=== PATIENT | female | born 1960 | race Caucasian/White ===

== ENCOUNTER 2020-11-22 15:26 | Outpatient (REF) | payer OTHER, SELFPAY ==
[2020-11-22 16:47] LABS: Influenza A PCR NEGATIVE (Negative); Influenza B PCR NEGATIVE (Negative); Resp Syncy Virus RNA Qual PCR NEGATIVE (Negative); SARS COV2 PCR INHOUSE NEGATIVE (Negative)
== END 2020-11-22 15:27 | disposition home or self-care (01) ==
LOC: HO.LNP 15:26
PROVIDERS: Visit Provider Internal Medicine
DX: Z20.822 Contact with and (suspected) exposure to COVID-19 (principal)
CPT/HCPCS: 0241U

== ENCOUNTER 2021-10-12 13:01 | Outpatient (REF) | payer BC, SELFPAY | END 2021-10-12 13:02 | disposition home or self-care (01) | LOC: HO.10HDL 13:01 | PROVIDERS: Visit Provider Internal Medicine | DX: L72.3 Sebaceous cyst (principal) | CPT/HCPCS: 87071; 87205 ==

== ENCOUNTER 2024-04-12 12:44 | Outpatient (REF) | payer BC, SELFPAY ==
[2024-04-12 13:13] LABS: MANUAL DIFF FLAG NO
[2024-04-12 13:23] LABS: Basophils Absolute Auto 0.1 X10*3/uL (0.0-0.2); Basophils Percent Auto 0.9 % (0-2); Eosinophils Absolute Auto 0.2 X10*3/uL (0.0-0.4); Eosinophils Percent Auto 3.7 % (0-4); Hematocrit 39.6 % (37.0-47.0); Imm Gran Abs Auto 0.01 X10*3/uL (0.00-0.03); Imm Gran Pct Auto 0.2 % (0.0-0.4); Lymphocytes Absolute Auto 1.5 X10*3/uL (1.2-4.9); Lymphocytes Percent Auto 25.5 % (20-40); Mean Corpuscular HGB Conc 32.8 g/dl (31.0-35.0); Mean Corpuscular Hemoglobin 29.2 pg (27.0-33.0); Mean Platelet Volume 9.8 fL (9.4-12.3); Monocytes Absolute Auto 0.6 X10*3/uL (0.1-1.2); Monocytes Percent Auto 10.7 % (2-11); Neutrophils Absolute Auto 3.5 x10*3/uL (2.0-8.3); Platelet Count 245 X10*3/uL (160-400); Red Blood Count 4.45 X10*6/uL (4.20-5.50); Red Cell Distribution Width 12.7 % (11.0-16.0); White Blood Count 5.9 X10*3/uL (4.8-10.8)
[2024-04-12 13:46] LABS: Alanine Aminotransferase 17 U/L (0-31); Albumin Level 4.4 g/dL (3.5-5.0); Alkaline Phosphatase 76 U/L (39-117); Anion Gap 7 (12-20); Aspartate Amino Transferase 18 U/L (5-31); Bilirubin Total 0.3 mg/dL (0.0-1.0); Blood Urea Nitrogen 28 mg/dL (9-16); Calcium 9.4 mg/dL (8.4-10.2); Carbon Dioxide 28 mmol/L (22-29); Chloride 111 mmol/L (96-108); Cholesterol 242 mg/dL (<200); Estimated Glomerular Filt Rate > 60; Glucose Random 99 mg/dL (60-115); Potassium 4.4 mmol/L (3.3-5.1); Sodium 142 mmol/L (135-145); Total Protein 7.3 g/dL (6.5-8.0)
== END 2024-04-12 12:45 | disposition home or self-care (01) ==
LOC: HO.10HDL 12:44
PROVIDERS: Visit Provider Internal Medicine
DX: Z13.6 Encounter for screening for cardiovascular disorders (principal); K21.9 Gastro-esophageal reflux disease without esophagitis; M17.12 Unilateral primary osteoarthritis, left knee; Z82.49 Family history of ischemic heart disease and other diseases of the circulatory system
CPT/HCPCS: 36415; 80053; 82465; 85025

== ENCOUNTER 2024-11-11 14:06 | Outpatient (AMB) | payer MEDICARE, SELFPAY ==
--- NOTE | 2024-11-11 14:09 | MHC.PC.OV ---
Vital Signs 11/11/24 14:25 Height 5 ft 7 in Weight 171 lb 2 oz BMI 26.8 BP 136/60 Blood Pressure Location Lt brachial Position Sitting Respiration 14 Pulse 76 Pulse Source Pulse Oximeter Temp 97.7 F Temp Source Temporal Artery Scan Pulse Oximetry (%) 95 Oxygen Delivery Method Room Air Intake Visit Reasons: PERSONAL INJURY LITIGATION PARALEGAL EST CARE Intake Note: Briseyda presents in the office today to establish care. Allergies Seasonal Allergies Allergy (Verified 11/11/24 14:17) Runny Nose Medication List - Last Reconciled 11/11/24 by Liz Young PA-C No Known Home Meds Tobacco use date assessed: 11/11/24 Dental Screening Dental Screen Date: 11/11/24 Did you have a dental visit in the last 12 months?: Yes Did you have a dental problem in the last 6 months where you did not have access to dental care?: No Was dental information given to patient?: Patient has dentist HPI PERSONAL INJURY LITIGATION PARALEGAL EST CARE HPI Details Pt is a 64 y/o female who presents today to establish care. 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 CV: bp today in office is 136/60. Cholesterol is diet controlled. She had a hx of HLD. She has had a neg stress test within 10 years. Msk: has longstanding left knee pain Psych: She has a hx of intermittent recurrent depression. In the past on zoloft around 2019. She felt the zoloft was helpful but had a hard time sleeping with it. She uses it prn. She is currently using herbal supplement. Derm: Follows with [facility] routinely for surveillance Mammo: utd, at [facility] Relay Tester: ANAND [place] Colonoscopy: 05/2019- due in 2029 Bone density: never had Fam hx: ovarian ca in patneral grandmother, Father had CABG hld, PFSH Medical History (Updated 11/11/24 @ 14:51 by Liz Young PA-C) Headache Depression Anxiety Acid reflux Incontinence Murmur Sinusitis Asthma Arthritis Surgical History (Updated 11/11/24 @ 14:30 by Lacey Fiore MA) History of appendectomy History of tonsillectomy Family History (Updated 11/11/24 @ 14:24 by Lacey Fiore MA) Father Hypertension Coronary artery disease Hyperlipemia Cardiovascular disease Brother Hypertension Cardiovascular disease Paternal Grandmother Ovarian cancer Mother Substance abuse Alcoholism Drug abuse FHx: mental illness Depression Other Coronary bypass graft mechanical complication Social History (Updated 11/11/24 @ 14:25 by Lacey Fiore MA) Housing: House Alcohol intake: current Patient Tobacco Use Status: Former Tobacco user Cigarette Packs Per Day: 1 Cigarettes Per Day: 6 Years Smoked: 4 e-Cigarette/Vaping Use: Never Used Second Hand Smoke Exposure: No service: No Current occupational status: retired Current occupational exposures/hazards: No Cognitive needs: No Hearing needs: No Vision needs: Yes Questionnaire PHQ-9 Over the last 2 weeks, how often have you been bothered by any of the following problems? 1. Little interest or pleasure in doing things: not at all 2. Feeling down, depressed, or hopeless: not at all 3. Trouble falling or staying asleep, or sleeping too much: not at all 4. Feeling tired or having little energy: not at all 5. Poor appetite or overeating: not at all 6. Feeling bad about yourself - or that you are a failure or have let yourself or your family down: not at all 7. Trouble concentrating on things, such as reading the newspaper or watching television: not at all 8. Moving or speaking so slowly that other people could have noticed. Or the opposite - being so fidgety or restless that you have been moving around a lot more than usual: not at all 9. Thoughts that you would be better off or of hurting yourself in some way: not at all Total score: 0 Depression Screening Interpretation: Negative Depression Screening Done: Yes 33362 - PHQ-9 Billing: Yes Source: Developed by Drs. Silvestre Suarez, Veronica Smith, Mark Bennett and colleagues, with an educational batsheva from [employer]. Thrive Questionnaire Date Thrive assessed: 11/11/24 I am a: Patient What is your living situation today?: I have a steady place to live Within the past 12 months, did the food you bought not last and you didn't have the money to get more?: Never true Within the past 12 months, did you worry whether your food would run out before you got money to buy more?: Never true Do you have trouble paying for medicines?: No Do you have trouble getting transportation to medical appointments?: No Do you have trouble paying your heating and electricity bill?: No Do you have trouble taking care of your child, family member or friend?: No Do you have trouble with day-to-day activities such as bathing, preparing meals, shopping, managing finances, etc.?: No Are you currently unemployed and looking for a job?: No Are you interested in more education?: No Please select the resources that you would like help with: None Currently or been in a relationship where the following occur: No concerns reported THRIVE Score: 0 AUDIT C Alcohol Use Questionnaire (AUDIT-C) 1. How often do you have a drink containing alcohol?: Monthly or less 2. How many drinks containing alcohol do you have on a typical day when you are drinking?: 1 or 2 3. How often do you have six or more drinks on one occasion?: Never Total Score: 1 ILENE-7 AMB Questionnaire ILENE-7 Date ILENE - 7 assessed: 11/11/24 Feeling nervous, anxious, or on edge: 1 = Several days Not being able to stop or control worryin = Not at all Worrying too much about different things: 0 = Not at all Trouble relaxin = Several days Being so restless that it is hard to sit still: 1 = Several days Becoming easily annoyed or irritable: 0 = Not at all Feeling afraid as if something awful might happen: 0 = Not at all Total ILENE-7 score (0-4 normal; 5-9 mild; 10-14 moderate; 15-21 severe): 3 Source: Developed by Drs. Silvestre Suarez, Veronica Smith, Mark Bennett and colleagues, with an educational batsheva from [employer]. ILENE-7 Assessment Billing ILENE-7 Assessment Tool: ILENE-7 Assessment 46840 Physical exam (Primary Care) Vital Signs: Last Vital Signs Temp 97.7 F 11/11/24 14: Pulse 76 11/11/24 14:25 Resp 14 11/11/24 14:25 BP 136/60 11/11/24 14:25 Pulse Ox 95 11/11/24 14:25 Oxygen Delivery Method Room Air 11/11/24 14:25 BMI result Body Mass Index 26.8 Tobacco/Smoking Status: Tobacco use Status Tobacco use date assessed 11/11/24 11/11/24 14:31 Patient Tobacco Use Status Former Tobacco user 11/11/24 14:31 e-Cigarette/Vaping Use Never Used 11/11/24 14:31 PHQ-9: PHQ-9 Score PHQ-9: Total score 0 11/11/24 14:40 Depression Screening Interpretation: Negative Thrive Assessment: Date of Thrive Assessment Date Thrive assessed 11/11/24 11/11/24 14:10 Currently or been in a relationship where the following occur: No concerns reported Const Orientation/consciousness: patient oriented x3 HENMT Ears: hearing grossly normal bilaterally Neck Thyroid: Thyroid normal Lymphatic: no lymphadenopathy noted Resp Auscultation: clear to auscultation bilaterally Cardio Rate: regular rate Rhythm: regular rhythm Heart sounds: S1 normal heart sound present and S2 normal heart sound present GI Inspection: Yes normal to inspection Palpation (GI): Soft to palpation and Other GI palpation findings present (nontender, no cva tenderness) Auscultation: normoactive bowel sounds Rectal Exam - Female: deferred Skin General skin exam: no rashes or lesions noted Neuro General: patient oriented x3, gait normal and no focal motor deficits Results Reviewed Results Reviewed: Laboratory Tests 04/12/24 12:52 WBC 5.9 RBC 4.45 Hgb 13.0 Hct 39.6 Plt Count 245 Sodium 142 Potassium 4.4 Chloride 111 H Carbon Dioxide 28 Anion Gap 7 L BUN 28 H Creatinine 0.66 Estimated GFR > 60 AST 18 ALT 17 Cholesterol 242 H Coding Level of Care Code New Pt Level 3 (62102) Complex EM visit Add On G2211 Diagnoses Major depression, chronic F32.9 Dyslipidemia E78.5 BCC (basal cell carcinoma of skin) C44.91 Additional Codes ILENE-7 Assessment Billing - ILENE-7 Assessment Tool: ILENE-7 Assessment 35968 ([id number]) PHQ-9 - 35484 - PHQ-9 Billing: Yes ([id number]) Assessment & Plan Assessment & Plan (1) Major depression, chronic: Code(s): F32.9 - Major depressive disorder, single episode, unspecified Category: Medical Plan: Currently being managed with an herbal supplement . Doing well. She will let me know if anything changes (2) Dyslipidemia: Code(s): E78.5 - Hyperlipidemia, unspecified Category: Medical Plan: We will check this today. States that she is able to control this usually with her diet. (3) BCC (basal cell carcinoma of skin): Code(s): C44.91 - Basal cell carcinoma of skin, unspecified Category: Medical Plan: Follows with new [facility] Orders: Orders Comprehensive [place]. Panel Fast 11/11/24 C44.91 - Basal cell carcinoma of skin, unspecified, E78.5 - Hyperlipidemia, unspecified, F32.9 - Major depressive disorder, single episode, unspecified Lipid Panel 11/11/24 C44.91 - Basal cell carcinoma of skin, unspecified, E78.5 - Hyperlipidemia, unspecified, F32.9 - Major depressive disorder, single episode, unspecified Microalbumin, Random (w Creat) 11/11/24 C44. - Basal cell carcinoma of skin, unspecified, E78.5 - Hyperlipidemia, unspecified, F32.9 - Major depressive disorder, single episode, unspecified XR DEXA axial skeleton 11/11/24 N95.1 - Menopausal and female climacteric states Complete Blood Count Auto Diff 11/11/24 C44.91 - Basal cell carcinoma of skin, unspecified, E78.5 - Hyperlipidemia, unspecified, F32.9 - Major depressive disorder, single episode, unspecified TSH reflex Free T4 11/11/24 C44.91 - Basal cell carcinoma of skin, unspecified, E78.5 - Hyperlipidemia, unspecified, F32.9 - Major depressive disorder, single episode, unspecified UA CC w/rflx Micro + Cult 11/11/24 C44. - Basal cell carcinoma of skin, unspecified, E78.5 - Hyperlipidemia, unspecified, F32.9 - Major depressive disorder, single episode, unspecified, Z13.220 - Encounter for screening for lipoid disorders
[2024-11-11 14:25] VITALS: BP 136/60; PULSE 76; RESP 14; TEMP 36.5; O2SAT 95; BMI 26.8
--- OUTSIDE RECORDS SUMMARY | 2024-11-11 14:56 | XMS_ITS | Patient Health Record ---
Author Organization [facility] Address [address] [place] [address] Care Team Providers Care Basketball Scout Name Role Phone Chase (RETIRED) Lalo FARAH Primary Care Provide Silvestre Combs [phone] Allergies Allergen (clinical drug ingredient) Drug/Non Drug Allergy documented on EMR Reaction Allergy Type Onset Date Status penicillin G Penicillin G Sodium Unknown Drug Allergy Active Reason For Referral No Information Medications Medication SIG (Take, Route, Frequency, Duration) Notes Start Date End Date Status Multivitamin Active Ranitidine Oral as needed Acti ve Migraine Relief as needed Acti ve Cfxmegu-Nzbryb-Vr Chondr-MSM Active Albuterol as needed Active [place] 3 Active Immunizations Vaccine Route Administration Date Status Comme nts Influenza Unknown 04/01/2019 Refused Social History Tobacco Use: Social History Observation Description Date Details (start date - stop date) Never Smoker NA - NA Tobacco Use/Smoking Question Answer Notes Patient is a nonsmoker Alcohol Screen Question Answer Notes Did you have a drink contain ing alcohol in the past year? Yes How often did you have a dri nk containing alcohol in the past year? Monthly or less (1 point) How many drinks did you have on a typical day when you were drinking in the past year? 1 or 2 drinks (0 point) How often did you have 6 or more drinks on one occasion in the past year? Never (0 point) Points 1 Interpretation Negative Section Notes: Nonsmoker; no sig alcohol Problems Problem Type SNOMED Code ICD Code Onset Dates Problem Status W/U Status Risk Notes Problem [id number] Encounter for screening for malignant neoplasm of colon (Z12.11) Active confirmed Problem [id number] Pre-procedural examination (Z01.818) Active confirmed Plan Of Treatment Future Test Test Name Order Date COLONOSCOPY 04/01/2019 Insurance Providers Payer Name Payer Address Payer Phone Subscriber Number Group Number Insured Name Patient Relationship to Insured Coverage Start Date Coverage End Date [facility] PROFESSIONAL CLAIMS [address] [place] [address] [id number] ROLAND ZHANG Self - patient is the insured Medical (General) History Medical History History ICD Code Heart murmur since childhood--not clinic ally significant Asthma-- mild intermittent Depression Screening colonoscopy in 2008 was neg. except for some diverticulosis and internal hemorrhoids Mild and rare GERD Surgical History Surgery Date(Month/Year) Appendectomy Tonsillectomy
== END 2024-11-11 15:18 | disposition home or self-care (01) ==
LOC: HO.HMCFM 14:07
PROVIDERS: PCP Physician Assistant; Visit Provider Physician Assistant
DX: F32.9 Major depressive disorder, single episode, unspecified (principal); E78.5 Hyperlipidemia, unspecified; C44.91 Basal cell carcinoma of skin, unspecified

== ENCOUNTER → 2024-11-11 14:06 | Outpatient (BNVA) | payer MEDICARE, SELFPAY | PROVIDERS: PCP Physician Assistant; Visit Provider Physician Assistant | DX: M25.562 Pain in left knee (principal); F32.9 Major depressive disorder, single episode, unspecified; E78.5 Hyperlipidemia, unspecified; C44.91 Basal cell carcinoma of skin, unspecified | CPT/HCPCS: 96127; 99202 ==

== ENCOUNTER 2024-12-09 09:11 | Outpatient (REF) | payer MEDICARE, SELFPAY ==
--- OUTSIDE RECORDS SUMMARY | 2024-12-09 10:35 | XMS_ITS | Patient Health Record ---
Author Organization [facility] Address [address] [place] [address] Care Team Providers Care Finisher Plate Name Role Phone Chase (RETIRED) Lalo FARAH Primary Care Provide Silvestre Combs [phone] Allergies Allergen (clinical drug ingredient) Drug/Non Drug Allergy documented on EMR Reaction Allergy Type Onset Date Status penicillin G Penicillin G Sodium Unknown Drug Allergy Active Reason For Referral No Information Medications Medication SIG (Take, Route, Frequency, Duration) Notes Start Date End Date Status Multivitamin Active Ranitidine Oral as needed Acti ve Migraine Relief as needed Acti ve Ullgepj-Rbyfey-Ki Chondr-MSM Active Albuterol as needed Active [place] 3 Active Immunizations Vaccine Route Administration Date [...] Problem Status W/U Status Risk Notes Problem [id number] Encounter for screening for malignant neoplasm of colon (Z12.11) Active confirmed Problem [id number] Pre-procedural examination (Z01.818) Active confirmed Plan Of Treatment Future Test Test Name Order Date COLONOSCOPY 04/01/2019 Insurance Providers Payer Name Payer Address Payer Phone Subscriber Number Group Number Insured Name Patient Relationship to Insured Coverage Start Date Coverage End Date [facility] PROFESSIONAL CLAIMS [address] [place] [address] [id number] ROLAND ZHANG Self - patient is the insured Medical (General) History Medical History History ICD Code Heart murmur since childhood--not clinic ally significant Asthma-- mild intermittent Depression Screening colonoscopy in 2008 was neg. except for some diverticulosis and internal hemorrhoids Mild and rare GERD Surgical History Surgery Date(Month/Year) Appendectomy Tonsillectomy
[2024-12-09 11:35] LABS: MANUAL DIFF FLAG NO
[2024-12-09 11:38] LABS: Hematocrit 37.8 % (37.0-47.0); Hemoglobin 12.7 g/dl (12.0-16.0); Imm Gran Abs Auto 0.01 X10*3/uL (0.00-0.03); Imm Gran Pct Auto 0.2 % (0.0-0.4); Lymphocytes Absolute Auto 1.2 X10*3/uL (1.2-4.9); Mean Corpuscular HGB Conc 33.6 g/dl (31.0-35.0); Mean Corpuscular Hemoglobin 29.6 pg (27.0-33.0); Mean Corpuscular Volume 88.1 fL (80.0-98.0); NRBC Abs Auto 0.000 X10*3/uL (0.0-0.012); NRBC Pct Auto 0.0 /100WBC (0.0-0.2); Platelet Count 226 X10*3/uL (160-400); Red Blood Count 4.29 X10*6/uL (4.20-5.50); White Blood Count 4.8 X10*3/uL (4.8-10.8)
[2024-12-09 11:45] LABS: Appearance Urine Clear; Glucose Urine UA Negative (Negative); PH 6.5 (5.0-9.0); Specific Gravity - Urine 1.010 (1.005-1.025)
[2024-12-09 12:13] LABS: Alanine Aminotransferase 16 U/L (0-31); Albumin Level 4.4 g/dL (3.5-5.0); Alkaline Phosphatase 67 U/L (39-117); Anion Gap 10 (12-20); Aspartate Amino Transferase 22 U/L (5-31); Blood Urea Nitrogen 27 mg/dL (9-16); Calcium 9.3 mg/dL (8.4-10.2); Carbon Dioxide 28 mmol/L (22-29); Chloride 108 mmol/L (96-108); Cholesterol 240 mg/dL (<200); Estimated Glomerular Filt Rate > 60; HDL Cholesterol 68 mg/dL (>40); Potassium 4.1 mmol/L (3.3-5.1); Sodium 142 mmol/L (135-145); Total Protein 6.9 g/dL (6.5-8.0); Triglycerides 45 mg/dL (<150)
== END 2024-12-09 09:12 | disposition home or self-care (01) ==
LOC: HO.WFDLDS 09:11
PROVIDERS: Visit Provider Physician Assistant
DX: Z13.220 Encounter for screening for lipoid disorders (principal); F32.9 Major depressive disorder, single episode, unspecified; E78.5 Hyperlipidemia, unspecified; C44.91 Basal cell carcinoma of skin, unspecified
CPT/HCPCS: 36415; 80053; 80061; 81003; 82043; 82570; 84443; 85025

== ENCOUNTER 2024-12-23 08:15 | Outpatient (REF) | payer MEDICARE, SELFPAY ==
--- NOTE | ~2024-12-23 | MM_ITS ---
EXAMINATION: DXA BONE DENSITY AXIAL HISTORY: N95.1 - Menopausal and female climacteric states TECHNIQUE: [employer] Dual energy absorptiometry (DEXA) of the lumbar spine, total left hip, and femoral neck was performed. COMPARISON: There are no prior studies for comparison. FINDINGS: The bone mineral density of the lumbar spine is 1.153 g/cm2, corresponding to a T-score of -0.2, and a Z-score of 1.0. This is indicative of normal bone mineral density. The bone mineral density of the left total hip is 0.958 g/cm2, corresponding to a T-score of -0.4, and a Z-score of 0.5. This is indicative of normal bone mineral density. The bone mineral density of the left femoral neck is 0.875 g/cm2, corresponding to a T-score of -1.2, and a Z-score of 0.1. This is indicative of osteopenia. FRACTURE RISK: The FRAX index suggests a risk of major osteoporotic fracture of 8.4%, and of hip fracture 0.7%. MM/XR DEXA axial skeleton IMPRESSION: Based on bone mineral density, and according to World Health Organization (WHO) criteria, the diagnosis is consistent with osteopenia. Statistically, 68% of repeat scans fall within 1 SD (+/- 0.010 g/cm2 for AP spine L1-L4) and 1 SD (+/- 0.012 g/cm2 for femur total) FRAX is a trademark of the [employer] [place] for Metabolic Bone Disease, a World Health Organization (WHO) Collaborating Center. Electronically signed by: Silvestre Bonds MD 12/23/2024 08:47 AM EDT
--- OUTSIDE RECORDS SUMMARY | 2024-12-23 08:41 | XMS_ITS | Patient Health Record ---
Author Organization [facility] Address [address] [place] [address] Care Team Providers Care Cost Accounting Analyst Name Role Phone Chase (RETIRED) Lalo FARAH Primary Care Provide Silvestre Combs [phone] Allergies Allergen (clinical drug ingredient) Drug/Non Drug Allergy documented on EMR Reaction Allergy Type Onset Date Status penicillin G Penicillin G Sodium Unknown Drug Allergy Active Reason For Referral No Information Medications Medication SIG (Take, Route, Frequency, Duration) Notes Start Date End Date Status Multivitamin Active Ranitidine Oral as needed Acti ve Migraine Relief as needed Acti ve Sffcslq-Fpkkkv-Ig Chondr-MSM Active Albuterol as needed Active [place] 3 Active Immunizations Vaccine Route Administration Date [...] Problem Status W/U Status Risk Notes Problem [id number] Encounter for screening for malignant neoplasm of colon (Z12.11) Active confirmed Problem [id number] Pre-procedural examination (Z01.818) Active confirmed Plan Of Treatment Future Test Test Name Order Date COLONOSCOPY 04/01/2019 Insurance Providers Payer Name Payer Address Payer Phone Subscriber Number Group Number Insured Name Patient Relationship to Insured Coverage Start Date Coverage End Date [facility] PROFESSIONAL CLAIMS [address] [place] [address] [id number] ROLAND ZHANG Self - patient is the insured Medical (General) History Medical History History ICD Code Heart murmur since childhood--not clinic ally significant Asthma-- mild intermittent Depression Screening colonoscopy in 2008 was neg. except for some diverticulosis and internal hemorrhoids Mild and rare GERD Surgical History Surgery Date(Month/Year) Appendectomy Tonsillectomy
== END 2024-12-23 08:16 | disposition home or self-care (01) ==
LOC: HO.MAMMO 08:15
PROVIDERS: PCP Physician Assistant; Visit Provider Physician Assistant
DX: Z13.820 Encounter for screening for osteoporosis (principal); Z78.0 Asymptomatic menopausal state
CPT/HCPCS: 77080

== ENCOUNTER → 2024-12-23 08:15 | Outpatient (BNV) | payer MEDICARE, SELFPAY | PROVIDERS: PCP Physician Assistant; Visit Provider Radiology Diagnostic Radiology | DX: E28.39 Other primary ovarian failure (principal) | CPT/HCPCS: 77080 ==